=== PATIENT | male | born 1980 | race African-American/Black ===

== ENCOUNTER → 2021-01-21 14:59 | Outpatient (BNVA) | payer OTHER, SELFPAY | PROVIDERS: Visit Provider Nurse Practitioner Family | DX: L02.411 Cutaneous abscess of right axilla (principal) | CPT/HCPCS: 87070; 87075; 87077; 87184; 87205 ==

== ENCOUNTER → 2022-02-07 12:00 | Outpatient (BNVA) | payer OTHER, SELFPAY | PROVIDERS: Visit Provider Nurse Practitioner Family | DX: S46.912A Strain of unspecified muscle, fascia and tendon at shoulder and upper arm level, left arm, initial encounter (principal); W09.1XXA Fall from playground swing, initial encounter | CPT/HCPCS: 73030 ==